=== PATIENT | female | born 1970 | race African-American/Black ===

== ENCOUNTER 2018-09-09 11:54 | Inpatient (IN) | payer OTHER ==
[~2018-09-09] VITALS: Ht 185.4 cm; Wt 145.1 kg
[2018-09-09] MEDS ORDERED: METHYLPREDNISOLONE SOD SUCC 125 MG/2 ML VIAL IV STA (12:44)
[2018-09-09] MEDS ORDERED: IPRATROPIUM BROMIDE (0.02%) 0.5MG/2.5ML NEB HHN STA (12:44)
[2018-09-09 13:21] LABS: BASOPHILS % 0.8 % (0.0-2.0); EOSINOPHILS % 1.4 % (0.0-5.0); HEMATOCRIT. 41.4 % (36.0-48.0); HEMOGLOBIN. 12.9 g/dL (12.0-16.0); LYMPHOCYTES % 38.4 % (20.0-50.0); MEAN CORPUSCULAR HEMOGLOBIN 23.6 pg (28.0-32.0); MEAN CORPUSCULAR VOLUME 75.4 fL (81.0-99.0); MEAN PLATELET VOLUME 10.1 fl (7.4-10.4); MONOCYTES % 7.4 % (2.0-8.0); PLATELET 212 x1000/uL (130-400); RED BLOOD CELL COUNT 5.49 mill/uL (4.2-5.4); RED CELL DISTRIBUTION WIDTH 14.6 % (11.6-14.6)
[2018-09-09 13:27] LABS: CHLORIDE 107 mEq/L (98-107)
[2018-09-09] MEDS: ALBUTEROL (0.083%) 2.5MG/3ML NEB HHN SCH ×2 (13:30→13:43)
[2018-09-09 13:31] LABS: D-DIMER 0.59 mg/L FEU (<0.50); INR 0.9; PROTHROMBIN TIME 9.7 sec (9.6-11.0)
[2018-09-09 13:33] LABS: HCG SCREEN NEGATIVE
[2018-09-09] MEDS ORDERED: CEFTRIAXONE 1 G PREMIX 50 ML IV ONE (13:45)
[2018-09-09] MEDS ORDERED: SODIUM CHLORIDE 0.9% 1000ML BAG (SEPSIS BOLUS) IV ONE (13:45)
[2018-09-09] MEDS ORDERED: IPRATROPIUM/ALBUTEROL 0.5-3(2.5)MG/3ML NEB HHN PRN (15:00)
[2018-09-09] MEDS ORDERED: BENZONATATE 100MG CAPSULE PO PRN (15:00)
[2018-09-09] MEDS ORDERED: ONDANSETRON HCL 4MG/2ML INJ IV PRN (15:00)
[2018-09-09 15:36] VITALS: BP 163/75
[2018-09-09 19:52] LABS: CLARITY URINE CLEAR (CLEAR); COLOR URINE YELLOW (YELLOW); KETONES URINE 1+ (NEGATIVE); LEUKOCYTE ESTERASE URINE NEGATIVE (NEGATIVE); NITRITE URINE NEGATIVE (NEGATIVE); OCCULT BLOOD URINE NEGATIVE (NEGATIVE); PH URINE >=9.0 (4.5-8.0); PROTEIN URINE NEGATIVE (NEGATIVE); SPECIFIC GRAVITY URINE 1.015 (1.005-1.030)
[2018-09-09 20:00] VITALS: BP 124/76
[2018-09-09 20:09] LABS: *AMPHETAMINES SCREEN URINE NEGATIVE (NEGATIVE); *BARBITURATES SCREEN URINE NEGATIVE (NEGATIVE); *BENZODIAZEPINES SCREEN URINE NEGATIVE (NEGATIVE); *COCAINE SCREEN URINE NEGATIVE (NEGATIVE); METHADONE URINE SCREEN NEGATIVE (NEGATIVE); OPIATES URINE SCREEN NEGATIVE (NEGATIVE); PHENCYCLIDINE URINE SCREEN NEGATIVE (NEGATIVE)
[2018-09-09 20:32] LABS: CANNABINOID URINE SCREEN PRESUMTIVE POSITIVE (NEGATIVE)
[2018-09-09] MEDS: BUDESONIDE 0.5MG/2ML NEB HHN SCH (20:59)
[2018-09-09] MEDS: IPRATROPIUM/ALBUTEROL 0.5-3(2.5)MG/3ML NEB HHN SCH (21:00)
[2018-09-09] MEDS ORDERED: MORPHINE SULFATE 2 MG/ML CPJ (NOT FOR IM USE) IV PRN (21:15)
[2018-09-09] MEDS: NITROGLYCERIN OINT 1GM/INCH UDPKT TD SCH (22:29)
[2018-09-09] MEDS: GUAIFENESIN 600MG ER TABLET PO SCH (22:29)
[2018-09-09] MEDS ORDERED: AZITHROMYCIN 500 MG in DEXT 5% WATER 250 ML IV SCH (23:15)
[2018-09-10] VITALS (7 sets, daily range): BP systolic 124–163; BP diastolic 75–91
[2018-09-10] MEDS: IPRATROPIUM/ALBUTEROL 0.5-3(2.5)MG/3ML NEB HHN SCH ×6 (00:53→20:00)
[2018-09-10] MEDS: AZITHROMYCIN 500 MG in DEXT 5% WATER 250 ML IV SCH (01:31)
[2018-09-10] MEDS: ACETAMINOPHEN 325MG TABLET PO PRN ×2 (05:18→15:56)
[2018-09-10] MEDS: NITROGLYCERIN OINT 1GM/INCH UDPKT TD SCH (05:19)
[2018-09-10 06:33] LABS: BASOPHILS % 0.1 % (0.0-2.0); HEMATOCRIT. 39.6 % (36.0-48.0); HEMOGLOBIN. 12.6 g/dL (12.0-16.0); LYMPHOCYTES % 11.7 % (20.0-50.0); MEAN CORPUSCULAR HEMOGLOBIN 23.7 pg (28.0-32.0); MEAN CORPUSCULAR VOLUME 74.6 fL (81.0-99.0); MEAN PLATELET VOLUME 11.6 fl (7.4-10.4); MONOCYTES % 2.5 % (2.0-8.0); NEUTROPHILS % 85.7 % (40.0-76.0); PLATELET 253 x1000/uL (130-400); RED BLOOD CELL COUNT 5.31 mill/uL (4.2-5.4); RED CELL DISTRIBUTION WIDTH 14.8 % (11.6-14.6)
[2018-09-10 06:43] LABS: CHLORIDE 111 mEq/L (98-107)
[2018-09-10] MEDS: BUDESONIDE 0.5MG/2ML NEB HHN SCH ×2 (07:53→20:02)
[2018-09-10] MEDS: GUAIFENESIN 600MG ER TABLET PO SCH ×2 (09:14→21:33)
[2018-09-10] MEDS: LORATADINE 10MG TABLET PO SCH (13:41)
[2018-09-10] MEDS ORDERED: CEFTRIAXONE 1 G PREMIX 50 ML IV SCH ×2 (14:00)
[2018-09-10] MEDS: FLUTICASONE PROPIONATE 50MCG/SPRAY BOTTLE BOTHNSTRLS SCH (21:33)
[2018-09-11] VITALS: BP 124/68
[2018-09-11] MEDS: AZITHROMYCIN 500 MG in DEXT 5% WATER 250 ML IV SCH (00:55)
[2018-09-11 04:00] VITALS: BP 129/67
[2018-09-11] MEDS: IPRATROPIUM/ALBUTEROL 0.5-3(2.5)MG/3ML NEB HHN SCH ×4 (05:13→12:19)
[2018-09-11 08:00] VITALS: BP 130/83
[2018-09-11] MEDS: BUDESONIDE 0.5MG/2ML NEB HHN SCH (08:00)
[2018-09-11] MEDS: LORATADINE 10MG TABLET PO SCH (08:18)
[2018-09-11] MEDS: GUAIFENESIN 600MG ER TABLET PO SCH (08:18)
[2018-09-11] MEDS: FLUTICASONE PROPIONATE 50MCG/SPRAY BOTTLE BOTHNSTRLS SCH (08:18)
[2018-09-11 09:41] LABS: BASOPHILS % 0.5 % (0.0-2.0); EOSINOPHILS % 0.3 % (0.0-5.0); HEMATOCRIT. 36.4 % (36.0-48.0); HEMOGLOBIN. 11.6 g/dL (12.0-16.0); LYMPHOCYTES % 33.4 % (20.0-50.0); MEAN CORPUSCULAR HEMOGLOBIN 23.9 pg (28.0-32.0); MEAN CORPUSCULAR VOLUME 74.8 fL (81.0-99.0); MEAN PLATELET VOLUME 10.6 fl (7.4-10.4); NEUTROPHILS % 61.8 % (40.0-76.0); PLATELET 211 x1000/uL (130-400); RED BLOOD CELL COUNT 4.86 mill/uL (4.2-5.4); RED CELL DISTRIBUTION WIDTH 14.5 % (11.6-14.6)
[2018-09-11 09:57] LABS: CHLORIDE 110 mEq/L (98-107)
[2018-09-11 11:04] VITALS: BP 130/78
[2018-09-11 12:00] VITALS: BP 131/81
[2018-09-12] MEDS ORDERED: AZITHROMYCIN 500 MG TABLET PO SCH (09:00)
== END 2018-09-11 14:26 | disposition home or self-care (01) | DRG 720 ==
LOC: ER 11:54 → 8WST 14:11 → ENRESERV 14:42 → 8WST 16:25
PROVIDERS: ADMIT Internal Medicine; ATTEND Internal Medicine
DX: A41.9 Sepsis, unspecified organism (principal); Z68.41 Body mass index [BMI] 40.0-44.9, adult; E66.9 Obesity, unspecified; F12.90 Cannabis use, unspecified, uncomplicated; J01.90 Acute sinusitis, unspecified; M94.0 Chondrocostal junction syndrome [Tietze]; I10 Essential (primary) hypertension; Z88.5 Allergy status to narcotic agent; Z88.9 Allergy status to unspecified drugs, medicaments and biological substances; Z71.3 Dietary counseling and surveillance; Z90.711 Acquired absence of uterus with remaining cervical stump
CPT/HCPCS: 36415; 71045; 71250; 78582; 80048; 80305; 83605; 83880; 84484; 84703; 85379; 93005; 93306; 93970; 94640; 96365; 96375; 99291; A9558; J0456; J0696; J2930; J7030; J7040; J7060; J7611; J7620; J7626

== ENCOUNTER 2018-09-22 13:41 | Emergency (ER) | payer OTHER ==
[~2018-09-22] VITALS: Ht 185.4 cm; Wt 142.0 kg
[2018-09-22] MEDS ORDERED: KETOROLAC 30MG/ML VIAL IM ONE (15:00)
[2018-09-22] MEDS ORDERED: DEXAMETHASONE 10 MG/ML VIAL IM ONE (15:00)
[2018-09-22 17:15] VITALS: BP 132/88
== END 2018-09-22 17:26 | disposition home or self-care (01) ==
LOC: ER 16:19
DX: G89.29 Other chronic pain (principal); M54.5 Low back pain; Z88.6 Allergy status to analgesic agent; Z88.8 Allergy status to other drugs, medicaments and biological substances; Z90.710 Acquired absence of both cervix and uterus; Z91.013 Allergy to seafood; Z98.890 Other specified postprocedural states
CPT/HCPCS: 96372; 99283; J1100; J1885

== ENCOUNTER 2019-04-22 12:16 | Emergency (ER) | payer OTHER ==
[~2019-04-22] VITALS: Ht 177.8 cm; Wt 145.0 kg
[2019-04-22 12:30] VITALS: BP 150/83
== END 2019-04-22 15:04 | disposition home or self-care (01) ==
LOC: ER 12:32
DX: S43.401A Unspecified sprain of right shoulder joint, initial encounter (principal); S09.8XXA Other specified injuries of head, initial encounter; V48.4XXA Person boarding or alighting a car injured in noncollision transport accident, initial encounter; Y93.9 Activity, unspecified; Y92.410 Unspecified street and highway as the place of occurrence of the external cause; Z88.6 Allergy status to analgesic agent; Z88.8 Allergy status to other drugs, medicaments and biological substances; Z90.710 Acquired absence of both cervix and uterus; Z91.013 Allergy to seafood
CPT/HCPCS: 29105; 71045; 73030; 81025; 99285

== ENCOUNTER 2019-12-01 13:04 | Emergency (ER) | payer OTHER ==
[~2019-12-01] VITALS: Ht 185.4 cm; Wt 136.0 kg
[2019-12-01 13:12] VITALS: BP 137/72
[2019-12-01] MEDS ORDERED: CYCLOBENZAPRINE 10MG TABLET PO ONE (14:15)
[2019-12-01] MEDS ORDERED: HYDROCODONE/ACETAMINOPHEN 5/325MG TABLET PO ONE (14:15)
[2019-12-01] MEDS ORDERED: ONDANSETRON 4MG ODT PO ONE (14:15)
== END 2019-12-01 14:35 | disposition home or self-care (01) ==
LOC: ER 13:04
DX: M54.5 Low back pain (principal); Z88.5 Allergy status to narcotic agent; Z91.041 Radiographic dye allergy status; Z91.013 Allergy to seafood; Z90.710 Acquired absence of both cervix and uterus
CPT/HCPCS: 99284; Q0162

== ENCOUNTER 2020-02-16 11:54 | Emergency (ER) | payer OTHER ==
[~2020-02-16] VITALS: Ht 185.4 cm; Wt 150.0 kg
[2020-02-16] MEDS ORDERED: ALBUTEROL (0.083%) 2.5MG/3ML NEB HHN ONE (12:30)
[2020-02-16 13:12] LABS: *AMPHETAMINES SCREEN URINE NEGATIVE (NEGATIVE); *BARBITURATES SCREEN URINE NEGATIVE (NEGATIVE); *BENZODIAZEPINES SCREEN URINE NEGATIVE (NEGATIVE); *COCAINE SCREEN URINE NEGATIVE (NEGATIVE); OPIATES URINE SCREEN NEGATIVE (NEGATIVE)
[2020-02-16 13:13] LABS: PHENCYCLIDINE URINE SCREEN NEGATIVE (NEGATIVE)
[2020-02-16 13:14] LABS: METHADONE URINE SCREEN NEGATIVE (NEGATIVE)
[2020-02-16 13:20] VITALS: BP 148/78
[2020-02-16 13:28] LABS: CANNABINOID URINE SCREEN PRESUMTIVE POSITIVE (NEGATIVE)
== END 2020-02-16 15:01 | disposition home or self-care (01) ==
LOC: ER 11:54
DX: J40 Bronchitis, not specified as acute or chronic (principal); Z88.5 Allergy status to narcotic agent; Z91.041 Radiographic dye allergy status; Z91.013 Allergy to seafood
CPT/HCPCS: 80305; 81025; 94640; 99283; Z7610

== ENCOUNTER 2020-08-01 18:19 | Emergency (ER) | payer OTHER ==
[~2020-08-01] VITALS: Ht 167.6 cm; Wt 109.0 kg
[2020-08-01] MEDS ORDERED: IBUP-2029 MT (19:42)
[2020-08-01] MEDS ORDERED: HYDR-4001 MT (19:43)
[2020-08-01] MEDS ORDERED: HYDROCODONE/ACETAMINOPHEN 5/325MG TABLET PO ONE (19:45)
[2020-08-01 19:50] VITALS: BP 146/90
== END 2020-08-01 19:55 | disposition home or self-care (01) ==
LOC: ER 18:19
DX: S90.31XA Contusion of right foot, initial encounter (principal); I10 Essential (primary) hypertension; V03.00XA Pedestrian on foot injured in collision with car, pick-up truck or van in nontraffic accident, initial encounter; Y93.01 Activity, walking, marching and hiking; Y92.410 Unspecified street and highway as the place of occurrence of the external cause; Z88.8 Allergy status to other drugs, medicaments and biological substances; Z88.6 Allergy status to analgesic agent; Z91.013 Allergy to seafood
CPT/HCPCS: 73630; 99283; Z7610

== ENCOUNTER 2021-03-20 13:37 | Emergency (ER) | payer OTHER ==
[~2021-03-20] VITALS: Ht 185.4 cm; Wt 140.0 kg
[~2021-03-20 13:37] MED LIST: HYDR-4001 MT; IBUP-2029 MT
[2021-03-20] MEDS ORDERED: KETOROLAC 60MG/2ML VIAL IM ONE (14:00)
[2021-03-20 14:48] VITALS: BP 138/97
[2021-03-20] MEDS ORDERED: NAPR-681 MT (15:11)
== END 2021-03-20 15:49 | disposition home or self-care (01) ==
LOC: ER 13:37
DX: M25.561 Pain in right knee (principal); I10 Essential (primary) hypertension; Y08.89XA Assault by other specified means, initial encounter; Y93.89 Activity, other specified; Y92.521 Bus station as the place of occurrence of the external cause; Z88.6 Allergy status to analgesic agent; Z91.013 Allergy to seafood; Z91.041 Radiographic dye allergy status
CPT/HCPCS: 29505; 73562; 96372; 99283; J1885

== ENCOUNTER 2021-04-03 07:41 | Emergency (ER) | payer OTHER ==
[~2021-04-03] VITALS: Ht 175.3 cm; Wt 150.0 kg
[~2021-04-03 07:41] MED LIST changes: +NAPR-681 MT
[2021-04-03] MEDS ORDERED: IBUP-2028 MT (09:02)
[2021-04-03 09:30] VITALS: BP 165/91
== END 2021-04-03 09:32 | disposition home or self-care (01) ==
LOC: ER 07:41
DX: M79.672 Pain in left foot (principal); I10 Essential (primary) hypertension; E66.9 Obesity, unspecified; Z68.42 Body mass index [BMI] 45.0-49.9, adult; Z87.828 Personal history of other (healed) physical injury and trauma; Z88.6 Allergy status to analgesic agent; Z88.5 Allergy status to narcotic agent; Z91.041 Radiographic dye allergy status; Z91.013 Allergy to seafood
CPT/HCPCS: 29515; 73610; 73630; 99284

== ENCOUNTER 2022-05-07 06:15 | Emergency (ER) | payer OTHER ==
[~2022-05-07] VITALS: Ht 182.9 cm; Wt 165.0 kg
[~2022-05-07 06:15] MED LIST changes: +IBUP-2028 MT
[2022-05-07 06:21] VITALS: BP 149/84
[2022-05-07] MEDS ORDERED: ACETAMINOPHEN 325MG TABLET PO ONE (07:00)
[2022-05-07] MEDS ORDERED: AMOX-494 PO (09:18)
[2022-05-07] MEDS ORDERED: ACET-2708 PO (09:18)
== END 2022-05-07 09:45 | disposition home or self-care (01) ==
LOC: ER 06:27
DX: J02.0 Streptococcal pharyngitis (principal); Z20.822 Contact with and (suspected) exposure to COVID-19; I10 Essential (primary) hypertension; Z88.5 Allergy status to narcotic agent; Z91.013 Allergy to seafood; Z91.041 Radiographic dye allergy status; Z98.890 Other specified postprocedural states
CPT/HCPCS: 71045; 87426; 87430; 87804; 99284; C9803

== ENCOUNTER 2022-07-03 12:22 | Emergency (ER) | payer OTHER ==
[~2022-07-03] VITALS: Ht 182.9 cm; Wt 160.0 kg
[~2022-07-03 12:22] MED LIST changes: +ACET-2708 PO; +AMOX-494 PO
[2022-07-03] MEDS ORDERED: D-ME118S48 PO (15:44)
[2022-07-03 16:38] VITALS: BP 142/85
== END 2022-07-03 16:40 | disposition home or self-care (01) ==
LOC: ER 12:56
DX: R07.89 Other chest pain (principal); R50.9 Fever, unspecified; R42 Dizziness and giddiness; I10 Essential (primary) hypertension; Z91.041 Radiographic dye allergy status; Z88.5 Allergy status to narcotic agent; Z91.013 Allergy to seafood
CPT/HCPCS: 71046; 99283